=== PATIENT | female | born 1990 | race Caucasian/White ===

== ENCOUNTER 2018-07-09 08:08 | Day surgery (SDC) | payer BC, OTHER ==
--- NOTE | 2018-07-09 06:07 | PDGENHP ---
History and Physical History and Physical: Assessment and Plan: 1. Dysmenorrhea Liliana has symptoms and exam concerning for endometriosis. Reassured her that despite being told her previous lap was normal, I would suspect that Dr. Goodman would find disease with a laparoscopy. We discussed all conservative and surgical options. At the end of our discussion, she would like to pursue excision surgery. She is considering a hysterectomy, and we discussed that though it is not a treatment for endometriosis, it would alleviate her dysmenorrhea. She could elect to keep or remove one or both ovaries. In the meantime, she could add MARIAELENA to the depo to decrease the breakthrough bleeding, but she would prefer to just do the depo at this time. We discussed the possibility of lupron injections post-operatively based on her response to the surgery and/or the extent of disease, based on her long history of chronic pelvic pain. She will see Dr. Goodman preoperatively for exam and preop teaching. 2. Pelvic pain We discussed the possibility of adding gabapentin or cymbalta for the chronic pain. She may start that at anytime should she wish to pursue more extensive pain management. I am hopeful that excision will decrease her daily pain. Subjective: Patient ID: Liliana is a 27 y.o. female who presents to [facility] for endometriosis consult. HPI Liliana Felder presents for a preoperative visit. She is scheduled for a robotic excision of endometriosis. The risks, benefits, and alternatives were presented and informed consent was obtained. 40 minutes of this 40 minute appointment was spent counceling, reviewing the procedure in detail, and discussing the preoperative and postoperative instructions. Below is a copy of our prior visit note. Liliana is a 27 year old para 0, who has had chronic pelvic pain since onset of menses at age 17. She had an exploratory laparoscopy in [place] with her OBGYN in 2012, and states that she was told they didn't really find anything. She has requested records be sent here, but they are not available today. She was having ovarian cysts, and they initially went in to remove the cysts, which had resolved prior to surgery. She was diagnosed with fibromyalgia in 2014. Her fibromyalgia pain is mostly in her back, knees and hands. Her menses started at age 17 and were extremely painful and heavy. She immediately started on MARIAELENA to try and decrease the pain and bleeding. She tried multiple types of MARIAELENA, but none helped much. She notes previous regular menstrual cycles, with 7 days of heavy bleeding. She wore mostly pads because she didn't like tampons. She didn't miss school, but notes that she wanted to. She has periods where she would like to miss work, but can't afford to miss. She also considers going to the ER regularly due to the pain, but notes that they never do anything for her. She feels daily pain, that is worse with ovulation. She is currently on depo- provera, which reduces her bleeding and menstrual pain, but she still notes ovulatory pain as she tracks it on her phone. The pain is sharp, dull, aching, cramping that wraps to her back. It is mostly centralized to the lower pelvis, but she feels it in both ovarian areas. She notes that the pain affects her sciatic area and radiates to her legs. The pain worsens with menstrual bleeding. She begins to bleed on the depo around the 8-10 week timeframe, just before her next injection is due. She does feel better on the depo and can tolerate the occasional bleeding, as it is light spotting. She notes dyschezia, which is deep and is accompanied by pressure and bloating, mostly surrounding her periods. She also has dyspareunia which is more frequent and feels deep. She notes deep aching in her ovaries with orgasm, that will last for a while. She does not desire future childbearing. 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 She takes Klonopin daily for anxiety. She has a history of depression but does not currently take medication for that. She does not take medicaiton for her fibromyalgia. CURRENT MEDICATIONS: Current Outpatient Medications Medication Sig clonazePAM (KLONOPIN) 0.25 mg disintegrating tablet Take 0.25 mg by mouth 2 times daily as needed. medroxyPROGESTERone (DEPO-PROVERA) 150 mg/mL injection Inject 150 mg into the muscle every 3 months. No current facility-administered medications for this visit. ALLERGIES: Patient has no known allergies. I have reviewed, verified and agree with the past medical history as documented by the RN today. Review of Systems Constitutional: Positive for fatigue. Respiratory: Negative. Cardiovascular: Negative. Gastrointestinal: Positive for abdominal distention (bloating with menses, painful bowel movements wtih menses). Genitourinary: Positive for dyspareunia, menstrual problem and pelvic pain. Negative for difficulty urinating. Musculoskeletal: Positive for arthralgias, back pain and myalgias. Skin: Negative. Neurological: Positive for light-headedness (with menses). Objective: Vital Signs: Visit Vitals Ht 1.651 m (5' 5") Wt 51 kg (112 lb 6.4 oz) BMI 18.70 kg/m Physical Exam Constitutional: She is oriented to person, place, and time. She appears well- developed and well-nourished. Neck: Normal range of motion. Cardiovascular: Normal rate. Pulmonary/Chest: Effort normal. Abdominal: Soft. There is no tenderness. Musculoskeletal: Normal range of motion. She exhibits tenderness (BL SI joint tenderness, L sciatic tenderness). Neurological: She is alert and oriented to person, place, and time. Skin: Skin is warm and dry. Psychiatric: She has a normal mood and affect. Her behavior is normal. Pelvic: normal external genitalia. Non gaping introitus. No vaginal discharge or bleeding. Cervix without lesion or discharge. Tenderness bilateral uterosacral ligaments, R>L. Tenderness R adnexa, some fullness noted but no obvious cyst or mass palpated. Tenderness posterior cervix and uterus. Uterus appears mobile. L adnexa mildly tender, without mass. Procedures DATA: N/A TIME/COUNSELING: I personally spent a total of 50 minutes. Of that 40 minutes was counseling/ coordination of patient's care. See my note above for details. Marcos Goodman MD
[2018-07-09] MEDS ORDERED: ceFAZolin 2 GM/DEXTROSE 100 ML IV ONE (08:35)
[2018-07-09] MEDS ORDERED: PHENAZOPYRIDINE HCL 200 MG TAB PO ONE (08:35)
[2018-07-09] MEDS ORDERED: ACETAMINOPHEN 500 MG TAB PO ONE (08:35)
[2018-07-09] MEDS ORDERED: GABAPENTIN 300 MG CAP PO ONE (08:35)
[2018-07-09] MEDS ORDERED: LR 1,000 ML IV ONE (08:38)
[2018-07-09] MEDS ORDERED: LIDOCAINE 1% 2 ML INJ ID PRN (08:38)
--- NOTE | 2018-07-09 10:01 | PDHPUP ---
History & Physical Update H&P update statement: This history and physical update is based on an assessment of the patient which was completed after admission or registration (within 24 hours), but prior to the surgery/procedure. H&P update: H&P reviewed & patient examined, no change in patient's condition since H&P completed
[2018-07-09] MEDS ORDERED: MIDAZOLAM 2 MG/2 ML VIAL IVP ONE ×2 (10:27→12:20)
--- NOTE | 2018-07-09 10:27 | PDANEPAE ---
ANE History of Present Illness Endometriosis with pelvic pain ANE Past Medical History - Cardiovascular History Hx Hypertension: No Hx Arrhythmias: No Hx Chest Pain: No Hx Coronary Artery / Peripheral Vascular Disease: No Hx CHF / Valvular Disease: No Hx Palpitations: No - Pulmonary History Hx COPD: No Hx Asthma/Reactive Airway Disease: No Hx Recent Upper Respiratory Infection: No Hx Oxygen in Use at Home: No Hx Sleep Apnea: No Sleep Apnea Screening Result - Last Documented: Negative - Neurologic History Hx Cerebrovascular Accident: No Hx Seizures: No Hx Dementia: No - Endocrine History Hx Diabetes: No - Renal History Hx Renal Disorders: No - Liver History Hx Hepatic Disorders: No - Neurological & Psychiatric Hx Hx Neurological and Psychiatric Disorders: Yes Neurological / Psychiatric History Comment: stressful situations trigger anxiety - Cancer History Hx Cancer: No - Congenital Disorder History Hx Congenital Disorders: No - GI History Hx Gastrointestinal Disorders: No - Other Health History Other Health History: endometiosis - Chronic Pain History Chronic Pain: Yes (fibromyalgia) - Surgical History Prior Surgeries: septoplasty 2017 ANE Review of Systems Review of Systems: - Exercise capacity METS (RN): 4 METS ANE Patient History - Allergies Allergies/Adverse Reactions: No Known Allergies Allergy (Verified 06/11/18 11:20) - Home Medications Home medications: home medication list seen and reviewed Home Medications: Ibuprofen [Motrin (*)] 200 mg PO DAILY PRN 06/11/18 [Last Taken 06/30/18] clonazePAM [Klonopin (*)] 0.25 mg PO DAILY PRN 06/11/18 [Last Taken 07/07/18] medroxyPROGESTERone [Depo-Provera 150 mg/ml (*)] 150 mg IM Q90D 06/11/18 [Last Taken Unknown] - NPO status NPO Since - Liquids (Date): 07/09/18 NPO Since - Liquids (Time): 08:55 NPO Since - Solids (Date): 07/08/18 - Anes Hx Anes Hx: no prior problems - Smoking Hx Smoking Status: Former smoker - Family Anes Hx Family Hx Anesthesia Complications: none ANE Labs/Vital Signs - Vital Signs Blood Pressure: 100/65 Heart Rate: 76 Respiratory Rate: 16 O2 Sat (%): 98 Height: 165.1 cm Weight: 49.895 kg ANE Physical Exam - Airway Neck exam: FROM Mallampati Score: Class 1 Mouth exam: normal dental/mouth exam - Pulmonary Pulmonary: no respiratory distress - Cardiovascular Cardiovascular: regular rate and rhythym - ASA Status ASA Status: I ANE Anesthesia Plan Anesthesia Plan: general endotracheal anesthesia Total IV Anesthesia: No
[2018-07-09] MEDS ORDERED: BUPIVACAINE/EPI 0.5% 30 ML SDV ONE (10:35)
[2018-07-09] MEDS ORDERED: fentaNYL 250 MCG/5 ML INJ ONE (10:37)
[2018-07-09] MEDS ORDERED: PROPOFOL 200 MG/20 ML VIAL ONE (10:37)
[2018-07-09] MEDS ORDERED: LIDOCAINE 2% 5 ML SDV ONE (10:39)
[2018-07-09] MEDS ORDERED: ROCURONIUM 50 MG/5 ML VIAL ONE ×2 (10:40→11:15)
[2018-07-09] MEDS ORDERED: DEXAMETHASONE 4 MG/ML VIAL ONE (11:09)
[2018-07-09] MEDS ORDERED: PROMETHAZINE HCL 25 MG/ML INJ IVP PRN (11:45)
[2018-07-09] MEDS ORDERED: ONDANSETRON 4 MG/2 ML VIAL IVP PRN (11:45)
[2018-07-09] MEDS ORDERED: NALOXONE HCL 0.4 MG/ML INJ IVP PRN (11:45)
[2018-07-09] MEDS ORDERED: ONDANSETRON 4 MG/2 ML VIAL ONE (11:49)
[2018-07-09] MEDS ORDERED: SUGAMMADEX SODIUM 200 MG/2 ML VIAL IVP ONE (11:49)
--- NOTE | 2018-07-09 12:13 | POSTOPPROG ---
Post Op Note Date of Operation: 07/09/18 Surgeon: Marcos Goodman Insurance Processor: Faina Hernandez Anesthesia: GET(General Endotracheal) Pre-op Diagnosis: Endometriosis Post-op Diagnosis: Same Procedure: Robotic excision of endo, bilat ureterolysis Findings: Endo Inf/Abcess present in the surg proc area at time of surgery?: No EBL: Minimal Complications: None
[2018-07-09] MEDS ORDERED: fentaNYL 100 MCG/2 ML INJ ONE (12:17)
[2018-07-09] MEDS ORDERED: HYDROmorphONE/DILAUDID 2 MG/ML INJ ONE (12:17)
--- NOTE | 2018-07-09 12:17 | POSTANESTH ---
Post Anesthetic Evaluation Cardiovascular Status: Similar to Pre-Op Cond, Other, See Comment (Some tachycacrdia) Respiratory Status: Similar to Pre-op Cond. Level of Consciousness/Mental Status: Alert and Oriented Pain Control: Adequate, Prn Tx Ordered Nausea/Vomiting Control: Adequate, Prn Tx Ordered Complications Possibly Related to Anesthesia: None Noted
[2018-07-09] MEDS: fentaNYL 100 MCG/2 ML INJ IVP PRN ×2 (12:19→12:34)
[2018-07-09] MEDS: HYDROmorphONE/DILAUDID 2 MG/ML INJ IVP PRN ×2 (12:24→12:34)
[2018-07-09] MEDS ORDERED: HYDROCODONE/APAP 5/325 TAB PO PRN (12:44)
[2018-07-09] MEDS ORDERED: HYDROCODONE/APAP 5/325 TAB ONE (12:44)
[2018-07-09 13:04] VITALS: BP 102/69
--- NOTE | 2018-07-09 16:14 | GOP ---
DATE OF OPERATION: 07/09/2018 SURGEON: Marcos Goodman MD LEAD SALES CONSULTANT: REYNA Michelle. ANESTHESIA: General. PREOPERATIVE DIAGNOSIS: 1. Endometriosis. 2. Dysmenorrhea. 3. Cyclic pelvic pain. POSTOPERATIVE DIAGNOSIS: 1. Endometriosis. 2. Dysmenorrhea. 3. Cyclic pelvic pain. PROCEDURE PERFORMED: 1. Robotic excision of endometriosis in anterior and posterior cul-de-sac, bilateral pelvic side wal ls. 2. Bilateral ureterolysis. 3. Bilateral ovariopexy. FINDINGS: SPECIMENS: Pelvic peritoneum with endometriosis. ESTIMATED BLOOD LOSS: Scant. DESCRIPTION OF PROCEDURE: The patient was taken to the operating room where she was identified. Gen eral anesthesia was administered and found to be adequate. She was placed in the lithotomy position and prepared and draped in normal sterile fashion. A Herrera catheter was placed in her bladder. A Hu lka tenaculum was placed in the uterus for manipulation. A 1 cm infraumbilical incision was made with a scalpel. The Veress needle with the CO2 gas flowing w as advanced into the peritoneal cavity. The abdomen was then insufflated with carbon dioxide gas. T he 12 mm trocar, followed by the laparoscope, was then inserted. The upper abdomen was unremarkable. There was no evidence of endometriosis on either diaphragm, liver, stomach, gallbladder, or upper a bdominal bowel. Two lateral ports were placed on the right and one on the left under direct visualiz ation. She then was placed in Trendelenburg position, and the da Ashley robot docked on the left side . The instruments were then brought into the abdominal cavity under direct visualization. Within the pelvis, she had multiple lesions, mostly vesicular endometriosis with some deeper yellow, as well as white, endometriosis in the posterior cul-de-sac and both pelvic sidewalls. She had sever al lesions in the right anterior cul-de-sac. There was none on the uterus or tubes. She had several superficial lesions on the left ovary but none on the right. The lesions in the anterior cul-de-sac were excised. The lesions on the left ovary were treated. A bilateral ovariopexy was performed by attaching each ovary to the ipsilateral round ligaments near th e internal inguinal ring. The posterior cul-de-sac peritoneum from the distal rectum up to the cervi x and laterally to both uterosacral ligaments was completely excised. A bilateral ureterolysis was r equired, given the lesions overlying both ureters. The peritoneum at the pelvic brims was incised. The ureters were gently dissected free and lateralized off the overlying peritoneum and endometriosis from the pelvic brim down to the uterine arteries. Once this was accomplished, the entire pelvic si dewall peritoneum was excised bilaterally. The pelvis was irrigated with sterile saline, and hemostasis was present. The robot was then undocke d. The fascia was closed with 0 Vicryl, skin with 4-0 Monocryl. Anesthesia was reversed, and the pa tient taken the PACU awake, in stable condition. COMPLICATIONS: None. DISPOSITION: Patient stable to PACU. /[id number]/MODL
== END 2018-07-09 13:57 | disposition home or self-care (01) ==
LOC: FSGY 08:08 → UNDOADMOB 08:08 → F3N 08:08 → EDSTATUS 10:00 → UNDODISOB 13:57 → FSGY 13:57
PROVIDERS: ATTEND Obstetrics & Gynecology
DX: N80.3 Endometriosis of pelvic peritoneum (principal); N94.6 Dysmenorrhea, unspecified; R10.2 Pelvic and perineal pain
CPT/HCPCS: J0690; J1100; J1170; J2250; J2405; J2704; J3010